=== PATIENT | female | born 1945 | race Caucasian/White ===

== ENCOUNTER 2020-03-13 10:11 | Emergency (ER) | payer MEDICARE ==
[~2020-03-13] VITALS: Ht 162.6 cm; Wt 61.0 kg
[2020-03-13 10:54] VITALS: BP 155/68
--- NOTE | 2020-03-13 11:19 | RAD ---
Examination: ANKLE LEFT 3V History: Reason: fell, left ankle injured /pain Comparison/Correlation: None Findings: 3 views of the left ankle was performed. Transverse fracture through the medial malleolus is present extending into the ankle joint mortise. Oblique fracture of the lateral malleolus is present. Soft tissue swelling about the malleoli noted. Anterior displacement of the distal tibia in relation to the talus is present. Soft tissue swelling on the anterior aspect of the distal tibia to the mid foot is notable. Impression: Medial malleolar fracture with intra-articular extension. Oblique nondisplaced fracture of the lateral malleolus. Soft tissue swelling. Electronically signed by: Dale Johnson MD (03/13/2020 11:16 AM) [id number]
--- NOTE | 2020-03-13 11:58 | PHYS DOC ---
Past Medical History Past Medical History: Hypothyroid Past Surgical History: Hysterectomy, Tonsillectomy Smoking Status: Never Smoker Alcohol Use: None General Adult EDM: Chief Complaint: MECHANICAL FALL HPI: HPI: Patient is a 74 year old female who presented to ER with left ankle pain after she fell while she was walking outside in her right away. Patient denies any head or neck injury. Patient states she was walking and slipped on ice , TWISTED her left ankle. Patient denies any pain in her left knee. Patient denies any knee pain, no pelvic pain, no hip pain, no back pain. Review of Systems: Review of Systems: Constitutional: Denies fever or chills. [] Eyes: Denies change in visual acuity. [] HENT: Denies nasal congestion or sore throat. [] Respiratory: Denies cough or shortness of breath. [] Cardiovascular: Denies chest pain or edema. [] GI: Denies abdominal pain, nausea, vomiting, bloody stools or diarrhea. [] : Denies dysuria. [] Musculoskeletal: Positive for left ankle pain. Integument: Denies rash. [] Neurologic: Denies headache, focal weakness or sensory changes. [] Endocrine: Denies polyuria or polydipsia. [] Lymphatic: Denies swollen glands. [] Psychiatric: Denies depression or anxiety. [] Heart Score: Risk Factors: Risk Factors: DM, Current or recent (<one month) smoker, HTN, HLP, family history of CAD, obesity. Risk Scores: Score 0 - 3: 2.5% MACE over next 6 weeks - Discharge Home Score 4 - 6: 20.3% MACE over next 6 weeks - Admit for Clinical Observation Score 7 - 10: 72.7% MACE over next 6 weeks - Early Invasive Strategies Physical Exam: PE: Constitutional: Well developed, well nourished, no acute distress, non-toxic appearance. [] HENT: Normocephalic, atraumatic, bilateral external ears normal, oropharynx moist, no oral exudates, nose normal. [] Eyes: PERRLA, EOMI, conjunctiva normal, no discharge. [] Neck: Normal range of motion, no tenderness, supple, no stridor. [] Cardiovascular:Heart rate regular rhythm, no murmur [] Lungs & Thorax: Bilateral breath sounds clear to auscultation [] Abdomen: Bowel sounds normal, soft, no tenderness, no masses, no pulsatile masses. [] Skin: Warm, dry, no erythema, no rash. [] Back: No tenderness, no CVA tenderness. [] Extremities: Left ankle IS tender to palpation with minimal swelling, no deformity noted, no open wound. No tenderness along the left leg and left knee. Neurologic: Alert and oriented X 3, normal motor function, normal sensory function, no focal deficits noted. [] Psychologic: Affect normal, judgement normal, mood normal. [] Current Patient Data: Vital Signs: Vital Signs Date Time Temp Pulse Resp B/P (MAP) Pulse Ox O2 Delivery O2 Flow Rate FiO2 03/13/20 10:54 98.3 80 18 155/68 (97) 99 Room Air 98.3 EKG: EKG: [] Radiology/Procedures: Radiology/Procedures: [facility] [address] [place] [address] IMAGING REPORT Signed PATIENT: PARAS RODRIGUEZ ACCOUNT: [id number] : 1945 LOCATION: ER AGE: 74 SEX: F EXAM STATUS: REG ER ORD. PHYSICIAN: LUIS HARDY DO REASON: fell, left ankle injured PROCEDURE: ANKLE LEFT 3V Examination: ANKLE LEFT 3V History: Reason: fell, left ankle injured /pain Comparison/Correlation: None Findings: 3 views of the left ankle was performed. Transverse fracture through the medial malleolus is present extending into the ankle joint mortise. Oblique fracture of the lateral malleolus is present. Soft tissue swelling about the malleoli noted. Anterior displacement of the distal tibia in relation to the talus is present. Soft tissue swelling on the anterior aspect of the distal tibia to the mid foot is notable. Impression: Medial malleolar fracture with intra-articular extension. Oblique nondisplaced fracture of the lateral malleolus. Soft tissue swelling. Electronically signed by: Dale Giraldo MD (03/13/2020 11:16 AM) [id number] DICTATED and SIGNED BY: DALE GIRALDO MD DATE: 03/13/20 1116 SPLINTING PROCEDURE: LEFT ANKLE FRACTURE ORTHOGLASS MATERIAL POSTERIOR SHORT LEG WITH STIR UP. POST SPLINTING EXAM: NO NEUROVASCULAR DEFICIT. Course & Med Decision Making: Course & Med Decision Making Pertinent Labs and Imaging studies reviewed. (See chart for details) Patient is a 74-year-old female who fell at home today sustained a bilateral malleolus fracture of her left ankle, patient was splinted with posterior short leg and stirrup, Ortho-Glass material by this physician. Discussed with the orthopedic surgeon on-call Dr. Quiñones who agreed to see patient in the clinic tomorrow. He recommended non- weightbearing on left leg , discharge patient home with pain medication and crutches. Dragon Disclaimer: Dragon Disclaimer: This electronic medical record was generated, in whole or in part, using a voice recognition dictation system. Departure Departure Impression: Primary Impression: Ankle fracture, lateral malleolus, closed Disposition: 01 DC HOME SELF CARE/HOMELESS Condition: IMPROVED Referrals: DIA HIDALGO MD (PCP) NEMO STRAUSS II, MD PLEASE CALL THIS ORTHOPEDIC SURGEON FOR FOLLOW UP TOMORROW. Patient Instructions: Bimalleolar Fracture, Ankle, Adult, Undisplaced Additional Instructions: USE CRUTCHES TO WALK, NO WEIGHT BEARING ON LEFT LEG. Scripts Hydrocodone/Apap 5-325 (NORCO 5-325 TABLET) 1 Each Tablet 1 TAB PO PRN Q6HRS PRN for PAIN, #20 TAB 0 Refills Prov: LUIS HARDY DO 03/13/20 LUIS HARDY DO Mar 13, 2020 11:58
[2020-03-13] MEDS ORDERED: HYDR-3164 PO (12:35)
== END 2020-03-13 12:58 | disposition home or self-care (01) ==
LOC: ER 10:11
DX: S82.65XA Nondisplaced fracture of lateral malleolus of left fibula, initial encounter for closed fracture (principal); S82.52XA Displaced fracture of medial malleolus of left tibia, initial encounter for closed fracture; E03.9 Hypothyroidism, unspecified; W18.39XA Other fall on same level, initial encounter; Y93.01 Activity, walking, marching and hiking; Y92.89 Other specified places as the place of occurrence of the external cause; Y99.8 Other external cause status
CPT/HCPCS: 29515; 73610; 99283